=== PATIENT | male | born 2000 | race African-American/Black ===

== ENCOUNTER 2019-02-22 14:38 | Emergency (ER) | payer OTHER ==
[~2019-02-22] VITALS: Ht 185.4 cm; Wt 72.6 kg
[2019-02-22] MEDS ORDERED: IBUPROFEN 600600 M1 PO (16:52)
[2019-02-22] MEDS ORDERED: KEFLEX500 M1 PO (16:52)
[2019-02-22] MEDS ORDERED: ULTRAM 50MG TAB50 MG PO (16:52)
[2019-02-22 17:10] VITALS: BP 134/84
== END 2019-02-22 17:10 | disposition home or self-care (01) ==
LOC: ER 14:38
DX: S92.412B Displaced fracture of proximal phalanx of left great toe, initial encounter for open fracture (principal); Y04.0XXA Assault by unarmed brawl or fight, initial encounter; Y93.89 Activity, other specified; Y92.89 Other specified places as the place of occurrence of the external cause; Y99.8 Other external cause status